=== PATIENT | male | born 1930 | race Caucasian/White ===

== ENCOUNTER 2017-06-06 17:29 | Inpatient (IN) | payer MEDICARE, BC ==
[2017-06-06] VITALS (243 sets, daily range): BP systolic 108–118; BP diastolic 81–86; PULSE 90–94; TEMP 97.4–97.8; O2SAT 56–100
[~2017-06-06] VITALS: Ht 172.7 cm; Wt 68.7 kg
[2017-06-06 19:32] LABS: MEAN CELL VOLUME 86 fl (80.0-100.0); MEAN CORPUSCULAR HGB CONC 34 g/dl (33.0-37.0); MEAN PLATELET VOLUME 10.4 fl (7.4-10.4); PLATELET COUNT 147 K/mm3 (130-400); RED BLOOD COUNT 2.71 M/mm3 (4.20-5.60); REDCELL DISTRIBUTION WIDTH-CV 14.5 % (11.5-14.5)
[2017-06-06] MEDS ORDERED: ALDACTONE 25MG25 M1 PO (19:35)
[2017-06-06 19:37] LABS: INR 1.1 (0.8-3.0); PROTHROMBIN TIME 11.7 SECONDS (9.7-12.8)
[2017-06-06] MEDS ORDERED: CARTIA XT240 MG PO (19:38)
[2017-06-06 19:40] LABS: PARTIAL THROMBOPLASTIN TIME 19.9 SECONDS (26.0-37.0)
[2017-06-06] MEDS ORDERED: PRILOSEC 20MG20 MG PO (19:40)
[2017-06-06] MEDS ORDERED: CINNAMON500 MG PO (19:42)
[2017-06-06] MEDS ORDERED: GLUCOSAMINE 1000 PO (19:47)
[2017-06-06 19:48] LABS: HEMATOCRIT 23.3 % (42.0-52.0); MEAN CORPUSCULAR HEMOGLOBIN 30 pg (27.0-31.0); WHITE BLOOD COUNT 21.4 K/mm3 (4.8-10.8)
[2017-06-06] MEDS ORDERED: CHONDROITIN SU400 MG PO (19:48)
[2017-06-06] MEDS ORDERED: EPA FISH OIL1 SGL PO (19:49)
[2017-06-06] MEDS ORDERED: VITAMIN C500 MG PO (19:50)
[2017-06-06] MEDS ORDERED: HYTRIN 5MG C5 MG/CAP PO (19:51)
[2017-06-06] MEDS ORDERED: COZAAR100 MG PO (19:51)
[2017-06-06] MEDS ORDERED: KLONOPIN 1MG1 MG PO (19:52)
[2017-06-06] MEDS ORDERED: CRESTOR5 MG PO (19:53)
[2017-06-06 19:58] LABS: ADD PATHOLOGY DIFF REVIEW NO; ADJUSTED CALCIUM 9.3 mg/dL (8.4-10.2); ALBUMIN 3.2 gm/dL (3.5-5.0); BILIRUBIN,TOTAL 0.4 mg/dL (0.0-1.0); CALCIUM 8.7 mg/dL (8.4-10.2); CREATININE, serum 1.18 mg/dL (0.66-1.25); POTASSIUM 4.2 mmol/L (3.4-5.0); TOTAL PROTEIN 5.2 gm/dL (6.4-8.2)
[2017-06-06 20:10] LABS: BAND 4 % (0-10); NEUTROPHILS 91 % (42.0-75.2); TOTAL CELLS COUNTED 100
[2017-06-06 20:11] LABS: PLATELET ESTIMATE NORMAL (NORMAL)
[2017-06-07] VITALS (615 sets, daily range): BP systolic 90–133; BP diastolic 48–89; PULSE 60–109; TEMP 97.2–98.8; O2SAT 58–100
[2017-06-07 00:17] LABS: HEMATOCRIT 21.7 % (42.0-52.0); HEMOGLOBIN 7.4 g/dl (13.5-18.0)
[2017-06-07 05:42] LABS: PH 5 (5-8); SQUAMOUS EPITHELIAL None Seen /hpf; URINE APPEARANCE Clear; URINE BACTERIA None Seen /hpf; URINE BILIRUBIN Negative (NEGATIVE); URINE BLOOD Negative (NEGATIVE); URINE COLOR Yellow; URINE GLUCOSE Negative (NEGATIVE); URINE KETONE Negative (NEGATIVE); URINE RBC 0-2 /hpf; URINE UROBILINOGEN Negative (NEGATIVE); URINE WBC 0-2 /hpf
[2017-06-07 06:07] LABS: BASO % 0.1 % (0.0-2.0); GRAN # 13.1 (1.4-6.5); LYMPH % 6.3 % (20.0-51.0); MEAN CELL VOLUME 87 fl (80.0-100.0); MEAN CORPUSCULAR HGB CONC 34 g/dl (33.0-37.0); MEAN PLATELET VOLUME 10.5 fl (7.4-10.4); MONO # 0.8 (0.1-0.6); MONO % 5.6 % (1.7-9.3); PLATELET COUNT 112 K/mm3 (130-400); REDCELL DISTRIBUTION WIDTH-CV 14.6 % (11.5-14.5); WHITE BLOOD COUNT 15.1 K/mm3 (4.8-10.8)
[2017-06-07 06:12] LABS: HEMATOCRIT 18.3 % (42.0-52.0); MEAN CORPUSCULAR HEMOGLOBIN 30 pg (27.0-31.0)
[2017-06-07 06:13] LABS: HEMOGLOBIN 6.2 g/dl (13.5-18.0)
[2017-06-07 06:21] LABS: CALCIUM 8.4 mg/dL (8.4-10.2); CREATININE, serum 1.09 mg/dL (0.66-1.25); POTASSIUM 3.6 mmol/L (3.4-5.0)
[2017-06-07 14:41] LABS: HEMATOCRIT 20.8 % (42.0-52.0); HEMOGLOBIN 7.1 g/dl (13.5-18.0)
[2017-06-07 22:02] LABS: HEMATOCRIT 22.8 % (42.0-52.0); HEMOGLOBIN 7.6 g/dl (13.5-18.0)
[2017-06-08] VITALS (732 sets, daily range): BP systolic 94–143; BP diastolic 51–75; PULSE 59–75; TEMP 97.2–98.4; O2SAT 84–100
[2017-06-08 04:59] LABS: BASO % 0.3 % (0.0-2.0); EOS # 0.1 (0.0-0.7); EOS % 0.7 % (0-4.0); GRAN # 8.3 (1.4-6.5); GRAN % 79.4 % (42.2-75.2); LYMPH # 1.2 (1.2-3.4); LYMPH % 11.5 % (20.0-51.0); MEAN CELL VOLUME 86 fl (80.0-100.0); MEAN CORPUSCULAR HGB CONC 34 g/dl (33.0-37.0); MEAN PLATELET VOLUME 10.5 fl (7.4-10.4); MONO # 0.8 (0.1-0.6); MONO % 7.7 % (1.7-9.3); PLATELET COUNT 104 K/mm3 (130-400); RED BLOOD COUNT 2.54 M/mm3 (4.20-5.60); WHITE BLOOD COUNT 10.5 K/mm3 (4.8-10.8)
[2017-06-08 05:02] LABS: HEMATOCRIT 21.9 % (42.0-52.0); HEMOGLOBIN 7.5 g/dl (13.5-18.0); MEAN CORPUSCULAR HEMOGLOBIN 30 pg (27.0-31.0)
[2017-06-08 05:14] LABS: ADJUSTED CALCIUM 8.8 mg/dL (8.4-10.2); ALBUMIN 2.7 gm/dL (3.5-5.0); BILIRUBIN,TOTAL 0.4 mg/dL (0.0-1.0); CALCIUM 7.8 mg/dL (8.4-10.2); CREATININE, serum 0.91 mg/dL (0.66-1.25); POTASSIUM 3.6 mmol/L (3.4-5.0); TOTAL PROTEIN 4.7 gm/dL (6.4-8.2)
[2017-06-08 12:08] LABS: HEMATOCRIT 22.1 % (42.0-52.0); HEMOGLOBIN 7.5 g/dl (13.5-18.0)
[2017-06-08 20:01] LABS: HEMATOCRIT 23.5 % (42.0-52.0); HEMOGLOBIN 7.9 g/dl (13.5-18.0)
[2017-06-09] VITALS (10 sets, daily range): BP systolic 111–143; BP diastolic 53–84; PULSE 61–84; TEMP 97.8–99.3
[2017-06-09 01:07] LABS: HEMATOCRIT 21.3 % (42.0-52.0); HEMOGLOBIN 7.1 g/dl (13.5-18.0)
[2017-06-09 07:49] LABS: HEMATOCRIT 21.2 % (42.0-52.0); HEMOGLOBIN 7.1 g/dl (13.5-18.0)
[2017-06-09 07:54] LABS: CALCIUM 7.7 mg/dL (8.4-10.2); CREATININE, serum 0.91 mg/dL (0.66-1.25); POTASSIUM 3.4 mmol/L (3.4-5.0)
[2017-06-09 13:14] LABS: HEMATOCRIT 24.3 % (42.0-52.0); HEMOGLOBIN 8.1 g/dl (13.5-18.0)
[2017-06-09 13:25] LABS: MAGNESIUM 1.9 mg/dL (1.6-2.3)
[2017-06-09 19:09] LABS: HEMATOCRIT 27.4 % (42.0-52.0); HEMOGLOBIN 9.1 g/dl (13.5-18.0)
[2017-06-10 04:15] VITALS: BP 116/60; PULSE 68; TEMP 98.2
[2017-06-10 08:26] VITALS: BP 140/71; PULSE 67; TEMP 98.3
[2017-06-10 12:18] VITALS: BP 118/64; PULSE 63; TEMP 97.6
== END 2017-06-10 14:20 | disposition home or self-care (01) | DRG 378 ==
LOC: ICU 17:29 → MEDICAL 06-08 13:26
PROVIDERS: Family Medicine; Internal Medicine Gastroenterology; Nurse Practitioner Family
PROC: 0DJ08ZZ Inspection of Upper Intestinal Tract, Via Natural or Artificial Opening Endoscopic (ICD-10-PCS; principal; 2017-06-07 11:45)
PROC: 0DJD8ZZ Inspection of Lower Intestinal Tract, Via Natural or Artificial Opening Endoscopic (ICD-10-PCS; 2017-06-07 11:45)
DX: K92.1 Melena (principal); D62 Acute posthemorrhagic anemia; I48.0 Paroxysmal atrial fibrillation; Z79.01 Long term (current) use of anticoagulants; I25.10 Atherosclerotic heart disease of native coronary artery without angina pectoris; I10 Essential (primary) hypertension; Z95.0 Presence of cardiac pacemaker; Z87.891 Personal history of nicotine dependence; I05.1 Rheumatic mitral insufficiency
CPT/HCPCS: OP; 99223-AI; 99232-AI; 99233-AI; 99239; C9113; J1940; J2250; J2270; J2916; J3010; J7030; J7050; P9016

== ENCOUNTER → 2019-04-10 | Outpatient (CLI) | payer MEDICARE, BC ==
[~2019-04-10] MED LIST: ALDACTONE 25MG25 M1 PO; CARTIA XT240 MG PO; CHONDROITIN SU400 MG PO; CINNAMON500 MG PO; COZAAR100 MG PO; CRESTOR5 MG PO; EPA FISH OIL1 SGL PO; GLUCOSAMINE 1000 PO; HYTRIN 5MG C5 MG/CAP PO; KLONOPIN 1MG1 MG PO; PRILOSEC 20MG20 MG PO; VITAMIN C500 MG PO
== END ==
LOC: COL.RAD 08:26
DX: M43.07 Spondylolysis, lumbosacral region (principal); M47.816 Spondylosis without myelopathy or radiculopathy, lumbar region; Z95.0 Presence of cardiac pacemaker